=== PATIENT | female | born 1985 | race Caucasian/White ===

== ENCOUNTER 2016-11-01 13:02 | Emergency (ER) | payer OTHER ==
--- NOTE | ~2016-11-01 | CR17 ---
[facility]. [facility] A Service of [facility] RADIOLOGY TEXT RESULTS PATIENT: DOUG DAVIS LOCATION: SED : 89 UNIT #: [id number] AGE: [address]: Maryann Alberto SEX: F ORDER DR: [id number] [address] [address] [id number] E MR#: [id number] Acc #: [id number] NAME: DOUG DAVIS : 1985 SEX: F STUDY DATE/TIME: 11/01/2016 14:02 UNIT: SED ROOM: STUDY DESCRIPTION: CR Ankle 2 Views Lt Attending Physician: Maryann Alberto P.A.-C. Ordering Physician: Maryann Alberto P.A.-C. Primary Care Physician: No Primary Care Physician MEDICAL IMAGING REPORT This report is preliminary unless electronic signature is present. EXAM Left ankle 2 views INDICATIONS Left ankle pain and swelling for 1 month. COMPARISON STUDIES No comparisons. FINDINGS No fracture or dislocation. Soft tissue structures are unremarkable. IMPRESSION Negative. Dictated by... Heraclio Marie M.D. THIS IS AN ELECTRONICALLY VERIFIED REPORT Heraclio Marie M.D. at 11/01/2016 5:05 PM Luana TD: 11/01/2016 15:46 JOB #: [id number] MEDICAL IMAGING REPORT Page 1 of 1
--- NOTE | ~2016-11-01 | US140 ---
[facility]. [facility] A Service [facility] RADIOLOGY TEXT RESULTS PATIENT: DOUG DAVIS LOCATION: SED : 89 UNIT #: [id number] AGE: [address]: Maryann Alberto SEX: F ORDER DR: [id number] [place] [id number] E MR#: [id number] Acc #: [id number] NAME: DOUG DAVIS : 1985 SEX: F STUDY DATE/TIME: 11/01/2016 15:25 UNIT: SED ROOM: STUDY DESCRIPTION: [facility] Attending Physician: Maryann Alberto P.A.-C. Ordering Physician: Maryann Alberto P.A.-C. Primary Care Physician: No Primary Care Physician MEDICAL IMAGING REPORT This report is preliminary unless electronic signature is present. EXAM Unilateral left lower extremity venous Doppler 11/01/2016 CLINICAL HISTORY Left leg pain and swelling for 1 month. TECHNIQUE Venous ultrasound examination of the left lower extremity was performed using grayscale, spectral Doppler and color flow Doppler imaging. FINDINGS The examination is negative. There is no evidence of left lower extremity deep venous thrombus from the groin to the lower calf. Visualized greater saphenous vein is also patent. IMPRESSION Negative examination. No evidence of left lower extremity deep venous thrombosis. Dictated by... Elliott Gil M.D. THIS IS AN ELECTRONICALLY VERIFIED REPORT Elliott Gil M.D. at 11/02/2016 4:10 PM Vanessa TD: 11/01/2016 17:09 JOB #: [id number] [facility] A Service [facility] RADIOLOGY TEXT RESULTS PATIENT: DOUG DAVIS LOCATION: SED : [birth year] UNIT #: [id number] AGE: [address]: Maryann Alberto SEX: F ORDER DR: MEDICAL IMAGING REPORT Page 1 of 1
[~2016-11-01 13:02] MED LIST: ANEXSIA 5/325 M1 TA1 PO; B12 PO; BACTRIM DS TABL1 TA1; BACTRIM DS TABL1 TA1 PO; CIPRO; CIPRO HC OTIC S10 ML OT; CIPRO PO; DICLOFENAC PO; DICYCLOMINE HCL20 MG PO; EFFEXOR PO; ESTROSTEP FE PO; FAMOTIDINE PO; KEFLEX500 M1; LEVAQUIN PO; MULTI VITAMIN1 EACH PO; NO MEDICATIONS; PERCOCET5/325 PO; PHENERGAN PO; PHENERGAN25 M1 PO; PHENERGAN25 MG PO; PRENATAL VITAMI1 TA3 PO; PRENATAL1 TA1; PRILOSEC PO; PYRIDIUM PO; REGLAN PO; REMERON15 MG PO; SULFAMETHOXAZO1 EACH PO; ULTRACET TABLET1 TAB PO; ULTRAM PO; VIBRAMYCIN100 M1 PO; VICODIN; VICODIN 5/1 TAB 5/50 PO; VICODIN 5/500 T1 TAB PO; ZOFRAN; ZOFRAN PO
[2016-11-01] MEDS ORDERED: NEURONTIN (13:05)
[2016-11-01] MEDS ORDERED: PHENERGAN25 M1 PO (13:05)
[2016-11-01] MEDS ORDERED: MOBIC PO (16:22)
== END 2016-11-01 16:22 | disposition home or self-care (01) ==
LOC: SED 13:02
DX: M79.662 Pain in left lower leg (principal); F32.9 Major depressive disorder, single episode, unspecified; Z79.899 Other long term (current) drug therapy; Z91.040 Latex allergy status
CPT/HCPCS: 29515; 73600; 85379; 93971; 99284